=== PATIENT | male | born 1950 | race Caucasian/White ===

== ENCOUNTER 2017-08-08 17:26 | Inpatient (IN) ==
[2017-08-08] MEDS ORDERED: IOPAMIDOL 100 ML BOTTLE IV ONE (17:27)
--- NOTE | 2017-08-08 18:05 | Emergency Department Note ---
Abdominal Pain HPI - General Chief Complaint: Abdominal Pain Stated Complaint: abdominal pain, nausea Time Seen by Provider: 08/08/17 17:49 Source: patient, family, EMS Mode of arrival: EMS Limitations: no limitations - History of Present Illness HPI Narrative: this is a 66-year-old male presents into the emergency room todayby EMS after an acute onset of abdominal pain , nausea, vomiting, and light headedness that began 44 hours prior to presentation. The patient reports that today ate a hot sandwich earlier in the day and upon returning home he felt some back pain and this then developed into some nausea and abdominal pain along with some lightheadedness and dizziness. He vomited multiple times at home and was lightheaded prompting them to call EMS. he was given some antinausea medicine with EMS and currently he is feeling less nauseous but he does have diffuse abdominal pain. He locates the pain in his abdomen diffusely but also notes some back pain. History of kidney stones. He has not noticed any bloody urine. He has regular bowel movements daily and reports his last bowel movement was about an hour and a half ago but this did not seem to improve his abdominal pain or nausea. He also reports that he suffers from migraines and uses a lot of Excedrin and he does have a known duodenal ulcer. says that the abdominal pain does seem to wax and wane but that he does have a constant abdominal pain that is moderate in severity.He denies any chest pain or shortness of breath, radiation of pain, dysuria, numbness/tingling, headache, or any other acute symptoms. - Related Data Allergies Allergy/AdvReac Type Severity Reaction Status Date / Time ampicillin Allergy Mild Rash Verified 08/08/17 17:35 Review of Systems All systems ED: reviewed and negative except as stated. Abdominal Pain PMH - Past Medical History Attestation: Yes: The following information was validated with the patient. - Social History Smoking status: Never smoker Physical Exam Limitations: no limitations General appearance: alert, anxious, other Head: atraumatic, normocephalic Eye: Present: normal appearance ENT: normal exam Neck: Present: normal inspection Chest: Present: normal inspection Respiratory: Present: normal lung sounds bilaterally Cardiovascular: Present: regular rate, normal rhythm, normal heart sounds Abdominal: Present: soft, distention, guarding, rigidity, normal bowel sounds. Absent: tenderness (no focal tenderness ), rebound, trauma, Shepard's sign, Rovsing's sign, tenderness at McBurney's Point, mass, hernia Back: Present: normal inspection. Absent: tenderness, CVA tenderness (R), CVA tenderness (L), muscle spasm, vertebral tenderness Neurological: Present: alert, oriented X3 Skin: Present: warm, dry, intact Course Vital Signs Temperature 97.3 F 08/08/17 17:28 Pulse Rate 95 H 08/08/17 17:28 Respiratory Rate 17 08/08/17 17:28 Blood Pressure 129/66 08/08/17 17:28 Pulse Oximetry (%) 93 08/08/17 17:28 Temperature 97.3 F 08/08/17 17:28 Pulse Rate 89 08/08/17 20:46 Respiratory Rate 19 08/08/17 18:16 Blood Pressure 127/80 08/08/17 20:46 Pulse Oximetry (%) 93 08/08/17 20:46 Abdominal Pain - [facility] Narrative Medical decision making narrative: aafter history and physical is unclear the source of his abdominal pain as he has diffuse pain throughout his abdomen. I ordered a CBC, CMP, lipase, EKG, upright abdomen x-ray and urine dipstick. His EKG shows normal sinus rhythm with eeither rate and rhythm and normal axis. No ST elevation or any T-wave changes. the results of his CBC showed an elevated white count at 18. This is concerning for intra-abdominal pathology and I ordered a CT of his abdomen with contrast. He had an elevated creatinine so we consult the radiologist recommended a liter of fluids which we gave him prior to the CT. His CT scan resulted with a small bowel obstruction and the possibility of a intra- abdominal mass. The patient was also treated for his pain while in the emergency room with Dilaudid. I ordered an NG tube with intermittent suction and called Dr. Johnson with general surgery for admission. I will find the patient a bed and Dr. Johnson will be admitting and taking over his care. - Lab Data Result diagrams: 08/08/17 17:54 08/08/17 17:54 Lab Results 08/08/17 08/08/17 Range/Units 17:54 17:54 WBC 18.3 H (4.5-11.0) K/mcL RBC 5.86 (4.50-5.90) M/mcL Hgb 18.6 H (13.5-16.5) g/dL Hct 55.5 H (41.0-55.0) % MCV 94.7 (80.0-100.0) fL MCH 31.7 (26.0-34.0) pg MCHC 33.5 (31.0-36.0) g/dL RDW 13.2 (11.5-14.5) % Plt Count 190 (140-440) K/mcL MPV 8.4 (7.4-10.4) fL Gran % 83.4 H (38.0-78.0) % Lymph % (Auto) 7.5 L (15.5-49.0) % Crane % (Auto) 5.7 (1.0-12.0) % Eos % (Auto) 3.3 (0.0-7.0) % Baso % (Auto) 0.1 (0.0-2.0) % Gran # 15.3 H (1.8-8.0) K/mcL Lymph # (Auto) 1.4 L (1.5-4.8) K/mcL Crane # (Auto) 1.0 H (0.1-0.9) K/mcL Eos # (Auto) 0.6 (0.0-0.7) K/mcL Baso # (Auto) 0 (0.0-0.3) K/mcL Sodium 141 (133-145) mmol/L Potassium 4.2 (3.3-5.1) mmol/L Chloride 102 (96-108) mmol/L Carbon Dioxide 27 (22-30) mmol/L Anion Gap 12.0 (8-16) BUN 24 H (8-23) mg/dl Creatinine 1.5 H (0.7-1.2) mg/dl GFR Calculation 47 Glucose 110 H (70-105) mg/dL Calcium 9.6 (8.6-10.4) mg/dl Total Bilirubin 0.4 (0.0-1.0) mg/dL AST 29 (0-37) U/l ALT 29 (0-40) U/l Alkaline Phosphatase 89 (39-117) U/L Total Protein 7.7 (5.9-8.4) gm/dL Albumin 4.9 (3.2-5.2) gm/dL Globulin 2.8 (2.2-3.7) gm/dL Albumin/Globulin Ratio 1.8 (1.0-2.3) Lipase 35 (7-60) U/L Disposition Pt seen by [employer] TE[employer]/PA only: No Disposition: Xfer As Inpt ([facility]) Condition: Fair
[2017-08-08] MEDS ORDERED: ONDANSETRON 4 MG/2 ML VIAL IV ONE (18:13)
[2017-08-08] MEDS ORDERED: KETOROLAC 30 MG/ML VIAL IV ONE (18:21)
[2017-08-08] MEDS ORDERED: LACTATED RINGERS 1,000 ML IV ONE (18:22)
[2017-08-08 18:30] LABS: Basophils # (Auto) 0 K/mcL (0.0-0.3); Basophils % (Auto) 0.1 % (0.0-2.0); Eosinophils # (Auto) 0.6 K/mcL (0.0-0.7); Eosinophils % (Auto) 3.3 % (0.0-7.0); Granulocytes % (Auto) 83.4 % (38.0-78.0); Lymphocytes # (Auto) 1.4 K/mcL (1.5-4.8); Lymphocytes % (Auto) 7.5 % (15.5-49.0); Mean Cell Volume 94.7 fL (80.0-100.0); Mean Corpuscular HGB Conc 33.5 g/dL (31.0-36.0); Mean Corpuscular Hemoglobin 31.7 pg (26.0-34.0); Monocytes % (Auto) 5.7 % (1.0-12.0); Platelet Count 190 K/mcL (140-440); RBC 5.86 M/mcL (4.50-5.90); Red Cell Distribution Width 13.2 % (11.5-14.5)
[2017-08-08 18:49] LABS: ALT/SGPT 29 U/l (0-40); Albumin 4.9 gm/dL (3.2-5.2); Albumin/Globulin Ratio 1.8 (1.0-2.3); Alkaline Phosphatase 89 U/L (39-117); Blood Urea Nitrogen 24 mg/dl (8-23); Lipase 35 U/L (7-60)
[2017-08-08] MEDS ORDERED: HYDROmorphone 2 MG/ML VIAL IV PRN (19:49)
[2017-08-08] MEDS ORDERED: HYDROmorphone 2 MG/ML VIAL ONE ×2 (19:49→21:21)
[2017-08-08] MEDS ORDERED: ONDANSETRON 4 MG/2 ML VIAL IV PRN (21:03)
[2017-08-08] MEDS ORDERED: NALOXONE HCL 0.4 MG/ML VIAL IV PRN (21:03)
[2017-08-08] MEDS ORDERED: 0.9 % SODIUM CHLORIDE 1,000 ML IV SCH (21:15)
[2017-08-08] MEDS ORDERED: ACETAMINOPHEN 1,000 MG/100 ML BOTTLE IV PRN (22:03)
[2017-08-08] MEDS ORDERED: PROMETHAZINE 25 MG/ML VIAL IV PRN (22:03)
[2017-08-08] MEDS: 0.9 % SODIUM CHLORIDE 10 ML SYRINGE IV SCH (22:12)
[2017-08-08] MEDS: 0.9 % SODIUM CHLORIDE 1,000 ML IV SCH (22:12)
[2017-08-08] MEDS ORDERED: LEVOFLOXACIN 750 MG/150 ML BAG IV ONE (22:13)
[2017-08-08] MEDS: LEVOFLOXACIN 750 MG/150 ML BAG IV SCH (22:15)
--- NOTE | 2017-08-08 22:42 | General Surg History&Physical ---
History of Present Illness Patient information: Note initiated : 08/08/17 at 10:40 pm Service Date, if different from initiated Date: [] Patient: Woody Alfred 66 y/o M admitted on 08/08/17 for abdominal pain, nausea. Chief Complaint: [] HPI: Mr. Alfred is a 66 year old M who is admitted for possible bowel obstruction. The patient states that he had onset of back pain about 2 PM today while traveling. This was followed by nausea and vomiting about 3 PM and he had 6 episodes of vomiting. He finally came to the emergency room where it was noted that his abdomen was distended and he had diffuse tenderness. CT of the abdomen shows dilated small bowel including stomach. There is a suggestion of a swirling pattern in the mid small bowel. There is gas distally in the colon without obstructive pattern. He has not had similar pain. He has no history of abdominal surgery. He has not had recent weight loss. His last bowel movement was about 3 PM today and it was normal. Review of Systems All systems PM: reviewed and no additional remarkable complaints except as stated - Musculoskeletal arthralgias, back pain, joint swelling - Neurological headache(s) (Migraine headaches) Past History Past medical history: Hypertension Migraine headaches Past surgical history: Right knee meniscectomy Right hand surgery Past family history: Father alive age 94 no illness Mother age 88 due to congestive heart failure Family history of prostate cancer Past social history: Retired Never smoker Occasional alcohol user Never a drug user Medications and Allergies Allergies Allergy/AdvReac Type Severity Reaction Status Date / Time ampicillin Allergy Mild Rash Verified 08/08/17 17:35 Exam Temp Pulse Resp BP Pulse Ox 97.3 F 95 H 19 127/80 95 08/08/17 17:28 08/08/17 20:56 08/08/17 18:16 08/08/17 20:46 08/08/17 20:56 - General physical appearance well developed, well nourished, no distress - Eyes PERRL, normal ocular movement - ENT normal pinna, normal nares, normal mucosa, no congestion, decreased hearing ( Hearing is significantly decreased) - Head Head exam IM: Present: atraumatic, normocephalic - Neck no masses, no bruits, trachea midline, no lymphadectomy, no venous distension - Cardiovascular Cardiovascular exam IM: Present: normal rate and rhythm Peripheral pulses: 3+/4+: carotid (L), carotid (R), dorsalis pedis (L), dorsalis pedis (R), femoral (L), femoral (R), posterior tibialis (L), posterior tibialis (R) - Respiratory normal expansion, normal respiratory effort, clear to percussion, clear to auscultation - Abdomen Abdomen: Present: soft, non tender (No tenderness to palpation; active bowel sounds; minimal distention), bowel sounds Hernia: Present: none - Genitourinary Present: normal penis with no external lesions - Integumentary Present: no rash, no growths, no abnormal pigmentation - Neurologic Present: normal coordination, normal sensation - Musculoskeletal Present: normal gait, normal posture - Psychiatric Present: oriented to time, oriented to person, oriented to place, speech is normal, memory intact Assessment and Plan (1) Small bowel obstruction Small bowel follow-through in the morning Rehydrate tonight Discussed possibility of laparotomy and bowel surgery if needed Status: Acute (2) Right renal mass Status: Acute (3) Essential hypertension Status: Acute (4) Dehydration, moderate Rehydrate and recheck labs in the morning Status: Acute
[2017-08-09] MEDS ORDERED: METOCLOPRAMIDE 10 MG/2 ML VIAL ONE ×2 (00:48→17:41)
[2017-08-09] MEDS: METOCLOPRAMIDE 10 MG/2 ML VIAL IV SCH ×5 (00:50→23:15)
[2017-08-09] MEDS: 0.9 % SODIUM CHLORIDE 1,000 ML IV SCH ×5 (04:40→20:12)
[2017-08-09] MEDS ORDERED: HYDROmorphone 2 MG/ML VIAL ONE ×2 (04:43→19:26)
[2017-08-09] MEDS: 0.9 % SODIUM CHLORIDE 10 ML SYRINGE IV SCH ×3 (05:24→20:39)
[2017-08-09 05:51] LABS: Mean Cell Volume 95.4 fL (80.0-100.0); Mean Corpuscular HGB Conc 33.1 g/dL (31.0-36.0); Mean Corpuscular Hemoglobin 31.5 pg (26.0-34.0); Platelet Count 181 K/mcL (140-440); RBC 5.41 M/mcL (4.50-5.90); Red Cell Distribution Width 13.4 % (11.5-14.5)
[2017-08-09 06:01] LABS: ALT/SGPT 24 U/l (0-40); Albumin 4.1 gm/dL (3.2-5.2); Albumin/Globulin Ratio 1.5 (1.0-2.3); Alkaline Phosphatase 76 U/L (39-117); Bilirubin,Direct < 0.2 mg/dL (0.0-0.3); Blood Urea Nitrogen 27 mg/dl (8-23); Gamma Glutamyl Transpeptidase 20 U/L (8-61); Uric Acid 4.4 mg/dL (2.5-8.0)
[2017-08-09 06:56] LABS: Lymphocytes % 7 % (15-49); Monocytes % (Manual) 3 % (1-12); Platelet Estimate NORMAL (NORMAL); RBC Morphology NORMAL (NORMAL); Segmented Neutrophils % 89 % (38-78)
--- NOTE | 2017-08-09 07:13 | XRay Report ---
CLINICAL INFORMATION: NG placement small bowel obstruction COMPARISON: None. FINDINGS: Heart size, mediastinum and pulmonary vessels are normal. Lungs are clear. Right diaphragm is chronically elevated. NG tube overlies the gastric body no effusion IMPRESSION: NG tube overlies the gastric body. No acute cardiopulmonary disease Interpreted and Authenticated by: Fawad Abbasi 08/09/17
--- NOTE | 2017-08-09 07:22 | XRay Report ---
CLINICAL INFORMATION: Abdominal pain and distention COMPARISON: None. FINDINGS: Only the superior one half of the abdomen is included in the film. The stomach is moderately dilated. Few loops of upper small bowel are mildly dilated. No free air or soft tissue mass. IMPRESSION: Suboptimal exam. Suspect small bowel obstruction Interpreted and Authenticated by: Fawad Abbasi 08/09/17
--- NOTE | 2017-08-09 07:23 | Emergency Department Note ---
ED Note Addendum Note Addendum: Saw this patient with John Ace PA-C. I agree with his documentation evaluation and management. In particular I also examined the patient reviewed his past medical history imaging and laboratory and helped coordinate his care. I wrote transition orders for Dr. Johnson to bring him in the hospital
[2017-08-09] MEDS ORDERED: PANTOPRAZOLE 40 MG VIAL IV SCH (07:30)
[2017-08-09] MEDS: HYDROmorphone 2 MG/ML VIAL IV PRN ×4 (07:53→23:27)
--- NOTE | 2017-08-09 08:26 | Cat Scan Report ---
CLINICAL INFORMATION: Abdominal pain and distention COMPARISON: None. TECHNIQUE: Following enteric contrast, 80 cc of Isovue-300 were injected and 60 seconds later, 0.625 mm helical slices were obtained from the mid heart through the iliac crest. Following reconstructions, sagittal, coronal and axial reformations were processed. Exam was reviewed at bone, lung and soft tissue windows Eight minutes later repeat 0.625 mm helical slices were obtained through the kidneys.The exam was performed using radiation dose optimization techniques including, but not limited to, automated exposure control, adjustment of the mA and/or kV according to patient size and use of iterative reconstruction technique. FINDINGS: Right diaphragm is mildly elevated and there is moderate compressive atelectasis in the overlying right lower lobe. No effusions. Minimal atelectasis in the posterior left lower lobe. The visualized heart is unremarkable. Images through the abdomen show a 14 mm simple cyst in the superior aspect of the right hepatic lobe and a 5 mm simple cyst in the mid right hepatic lobe. No significant focal hepatic lesions. The gallbladder and bile ducts are normal: CBD is 5 mm. The adrenal glands, spleen, pancreas and aorta including aortic branches are normal in size configuration and attenuation without focal lesion. There is a 20 mm minimally lobulated inhomogeneously enhancing nodule in the inferior pole the left kidney. It is suspicious for stage I renal cell carcinoma. There are two tiny nonobstructing stones in the calyces of both kidneys Images through the pelvis show urinary bladder prostate and seminal vesicles to be grossly normal.The stomach, duodenum and proximal jejunum are moderately dilated to the mid jejunal level. Beyond this transition, there is decompression of the distal small bowel and colon. Suspect adhesions or stricture. Sigmoid diverticuli seen, but no evidence of diverticulitis. The remaining leg colon and the appendix are unremarkable. Bone windows show grade 1 L4-5 spondylolisthesis with 6 mm of L4 anterior subluxation due to degenerative facet disease. This results in moderate central canal and bilateral IV foraminal narrowing. No focal osteolytic lesions IMPRESSION: Partial mid jejunal obstruction ostensibly related to fibrosis or adhesions. No free air or free fluid to suggest third spacing 20 mm inhomogeneously enhancing solid nodule in the inferior pole of the left kidney - suspicious for stage I renal cell carcinoma. No CT evidence for metastases or adenopathy. Consider: CT-guided percutaneous biopsy Moderate chronic elevation right diaphragm with compressive atelectasis in the overlying right lower lobe Grade 1 L4-5 spondylolisthesis and degenerative facet disease resulting in moderate central canal, bilateral lateral recess and IV foraminal narrowing possibly impinging the exiting L4 and descending L5 nerve roots - more prominent on the left sideleft side Interpreted and Authenticated by: Fawad Abbasi 08/09/17
--- NOTE | 2017-08-09 09:04 | XRay Report ---
CLINICAL INFORMATION: Follow small bowel obstruction COMPARISON: CT from one day prior 08/08/2017 FINDINGS: NG tip overlies the gastric antrum. The stomach, duodenum and proximal jejunum are mildly dilated, but decreased from previous day's study following NG decompression. There is modest amounts of residual stool and gas within the distal small bowel and colon. No free air or soft tissue mass. IMPRESSION: Improving partial mid jejunal obstruction pattern. NG tube in stable satisfactory position Interpreted and Authenticated by: Fawad Abbasi 08/09/17
[2017-08-09] MEDS: LEVOFLOXACIN 750 MG/150 ML BAG IV SCH (12:00)
--- NOTE | 2017-08-09 13:17 | General Surgery Progress Note ---
Subjective Patient reports: still having pain, no flatus, no bowel movement, nausea, afebrile Narrative: Note initiated : 08/09/17 at 1:14 pm Service Date, if different from initiated Date: [] Patient: Woody Alfred 66 y/o M admitted on 08/08/17 for abdominal pain, nausea. Chief Complaint: [Patient states that his abdominal pain has increased and he is having more severe cramping. He has had his small bowel follow-through and there is no transit of contrast through the small bowel at 4 hours. He has a rigid abdomen with hyperactive bowel sounds and more tenderness than last evening. He is counseled for exploratory laparotomy which will be done today.] Objective Temp Pulse Resp BP Pulse Ox 98.6 F 113 H 16 149/83 96 08/09/17 12:00 08/09/17 12:00 08/09/17 12:00 08/09/17 12:00 08/09/17 12:00 - Additional Data Intake & Output - Last 24 hours: Intake & Output 08/07/17 08/08/17 08/09/17 08/10/17 05:59 05:59 05:59 05:59 Intake Total 1999 / 1999 150 / 150 Output Total 1050 / 1050 Balance 950 / 950 150 / 150 Weight 200 lb - General physical appearance well developed, well nourished, moderate distress, moderate pain - Eyes PERRL, normal ocular movement - ENT normal pinna, normal nares, normal mucosa, no hearing loss, no congestion - Neck no masses, no bruits, trachea midline, no lymphadectomy, no venous distension - Respiratory normal expansion, normal respiratory effort, clear to percussion, clear to auscultation - Cardiovascular Cardiovascular exam: Present: normal rate and rhythm, +S1, +S2, tachycardia. Absent: JVD - Abdomen tender, bowel sounds (Distended abdomen with hyperactive bowel sounds; diffuse tenderness with guarding) - Integumentary no rash, no growths, no abnormal pigmentation - Neurologic normal coordination, normal sensation - Musculoskeletal normal gait, normal posture - Psychiatric oriented to time, oriented to person, oriented to place, speech is normal, memory intact - Labs 08/09/17 04:42 08/09/17 04:42 Diabetes panel 08/08/17 08/09/17 Range/Units 17:54 04:42 Sodium 141 138 (133-145) mmol/L Potassium 4.2 4.6 (3.3-5.1) mmol/L Chloride 102 103 (96-108) mmol/L Carbon Dioxide 27 22 (22-30) mmol/L BUN 24 H 27 H (8-23) mg/dl Creatinine 1.5 H 1.3 H (0.7-1.2) mg/dl Glucose 110 H 136 H (70-105) mg/dL Calcium 9.6 8.8 (8.6-10.4) mg/dl AST 29 28 (0-37) U/l ALT 29 24 (0-40) U/l Alkaline Phosphatase 89 76 (39-117) U/L Total Protein 7.7 6.9 (5.9-8.4) gm/dL Albumin 4.9 4.1 (3.2-5.2) gm/dL Triglycerides 136 (<150) mg/dl Calcium panel 08/08/17 08/09/17 Range/Units 17:54 04:42 Calcium 9.6 8.8 (8.6-10.4) mg/dl Phosphorus 2.6 L (2.7-4.5) mg/dL Albumin 4.9 4.1 (3.2-5.2) gm/dL Pituitary panel 08/08/17 08/09/17 Range/Units 17:54 04:42 Sodium 141 138 (133-145) mmol/L Potassium 4.2 4.6 (3.3-5.1) mmol/L Chloride 102 103 (96-108) mmol/L Carbon Dioxide 27 22 (22-30) mmol/L BUN 24 H 27 H (8-23) mg/dl Creatinine 1.5 H 1.3 H (0.7-1.2) mg/dl Glucose 110 H 136 H (70-105) mg/dL Calcium 9.6 8.8 (8.6-10.4) mg/dl Adrenal panel 08/08/17 08/09/17 Range/Units 17:54 04:42 Sodium 141 138 (133-145) mmol/L Potassium 4.2 4.6 (3.3-5.1) mmol/L Chloride 102 103 (96-108) mmol/L Carbon Dioxide 27 22 (22-30) mmol/L BUN 24 H 27 H (8-23) mg/dl Creatinine 1.5 H 1.3 H (0.7-1.2) mg/dl Glucose 110 H 136 H (70-105) mg/dL Calcium 9.6 8.8 (8.6-10.4) mg/dl Total Bilirubin 0.4 0.5 (0.0-1.0) mg/dL AST 29 28 (0-37) U/l ALT 29 24 (0-40) U/l Alkaline Phosphatase 89 76 (39-117) U/L Total Protein 7.7 6.9 (5.9-8.4) gm/dL Albumin 4.9 4.1 (3.2-5.2) gm/dL Assessment and Plan (1) Small bowel obstruction Status: Acute Assessment and plan: Clinically the patient has a complete obstruction and he is counseled for exploratory laparotomy. Current Visit: Yes (2) Essential hypertension Status: Acute Assessment and plan: Blood pressures mildly elevated but not significant enough to start treatment. We will give IV medication if needed Current Visit: Yes (3) Dehydration, moderate Status: Acute Assessment and plan: Creatinine is slightly improved but BUN still 27 Current Visit: Yes (4) Left renal mass Status: Acute Current Visit: Yes - Time Spent With Patient Total time spent is greater than 50% in coordination of care (as documented) at patient's floor/unit and/or counseling patient:
[2017-08-09 14:22] LABS: Appearance,Urine CLEAR; Bacteria,Urine 0 /hpf (0); Bilirubin,Urine NEG (NEG); Color,Urine YELLOW; Glucose,Urine (UA) NEGATIVE (NEG); Leukocyte Esterase,Urine NEG /uL (NEG); Mucus,Urine FEW /hpf (0); Protein,Urine 30 mg/dL (NEG); Specific Gravity,Urine 1.035 (1.000-1.035); Urine Blood >=1.0 mg/dL (<0.03); Urine RBC 108 /hpf (0-1); Urine Squamous Epithelial Cell 0 /hpf (0-4); Urine WBC 4 /hpf (0-4); Urobilinogen,Urine NEG (NEG)
[2017-08-09] MEDS ORDERED: ONDANSETRON 4 MG/2 ML VIAL IV ONE (14:25)
[2017-08-09] MEDS ORDERED: BUPIVACAINE W/EPI 0.5% 50 ML VIAL IJ ONE (14:25)
[2017-08-09] MEDS ORDERED: PROPOFOL 200 MG/20 ML VIAL IV ONE (14:25)
[2017-08-09] MEDS ORDERED: GLYCOPYRROLATE 0.2 MG/ML VIAL IV ONE (14:25)
[2017-08-09] MEDS ORDERED: NEOSTIGMINE 1 MG/ML VIAL IV ONE (14:25)
[2017-08-09] MEDS ORDERED: LIDOCAINE HCL/PF 100 MG/5 ML SYRINGE IV ONE (14:25)
[2017-08-09] MEDS ORDERED: MIDAZOLAM 2 MG/2 ML VIAL IV ONE (14:25)
[2017-08-09] MEDS ORDERED: KETAMINE 100 MG/ML ML IV ONE (14:25)
[2017-08-09] MEDS ORDERED: ROCURONIUM 10 MG/ML ML IV ONE (14:25)
[2017-08-09] MEDS ORDERED: PHENYLEPHRINE 10 MG/ML VIAL IV ONE (14:25)
--- NOTE | 2017-08-09 15:52 | Brief Operative Note ---
Date of procedure: 08/09/17 Pre-op diagnosis: small bowel obstruction Post-op diagnosis: other (adynamic ileus without obstruction) Procedure: exploratory laparotomy Grafts/Implants: No Anesthesia: GETA Findings: dilated proximal jejunum with mild dilation of ileum no evidence of stricture or stenosis; no evidence of any adhesions in peritoneal cavity .small bowel and colon are fully patent Complications: none Surgeon: Jayce Johnson Estimated blood loss (cc): 25 Specimens Removed/Pathology: none sent Condition: stable Disposition: PACU
[2017-08-09] MEDS ORDERED: MEPERIDINE 25 MG/ML SYRINGE IV PRN (15:53)
[2017-08-09] MEDS ORDERED: ONDANSETRON 4 MG/2 ML VIAL IV PRN ×2 (15:53→16:05)
[2017-08-09] MEDS ORDERED: IPRATROPIUM/ALBUTEROL 3 ML AMPUL.NEB NEB PRN (15:53)
[2017-08-09] MEDS ORDERED: LACTATED RINGERS 1,000 ML IV SCH ×2 (16:00→16:05)
[2017-08-09] MEDS ORDERED: PROMETHAZINE 25 MG/ML VIAL IV PRN (16:05)
[2017-08-09] MEDS: fentaNYL 100 MCG/2 ML VIAL IV PRN ×2 (16:22→16:27)
[2017-08-09] MEDS ORDERED: fentaNYL 100 MCG/2 ML VIAL IV ONE (16:22)
--- NOTE | 2017-08-09 19:23 | XRay Report ---
CLINICAL INFORMATION: Follow small bowel obstruction TECHNIQUE: Single contrast barium was in infused via NG tube serial plain films were obtained over two hours FINDINGS: The stomach, duodenum and multiple loops of proximal jejunum are moderately dilated to the mid jejunum. At that point, there is abrupt transition into decompressed distal jejunum and colon. Presumably, this is related to adhesion or stricture IMPRESSION: Moderate grade partial small bowel obstruction mid jejunum due to adhesion or stricture Interpreted and Authenticated by: Fawad Abbasi 08/09/17
[2017-08-09] MEDS: PANTOPRAZOLE 40 MG VIAL IV SCH (20:39)
[2017-08-09] MEDS: ACETAMINOPHEN 1,000 MG/100 ML BOTTLE IV PRN (21:06)
[2017-08-10] MEDS: 0.9 % SODIUM CHLORIDE 1,000 ML IV SCH ×4 (01:26→19:46)
[2017-08-10] MEDS: HYDROmorphone 2 MG/ML VIAL IV PRN ×7 (02:29→21:56)
[2017-08-10 06:18] LABS: Basophils # (Auto) 0 K/mcL (0.0-0.3); Basophils % (Auto) 0 % (0.0-2.0); Eosinophils # (Auto) 0 K/mcL (0.0-0.7); Eosinophils % (Auto) 0.1 % (0.0-7.0); Granulocytes % (Auto) 85.3 % (38.0-78.0); Lymphocytes # (Auto) 1.5 K/mcL (1.5-4.8); Lymphocytes % (Auto) 9.1 % (15.5-49.0); Mean Cell Volume 94.7 fL (80.0-100.0); Mean Corpuscular HGB Conc 33.6 g/dL (31.0-36.0); Mean Corpuscular Hemoglobin 31.8 pg (26.0-34.0); Monocytes # (Auto) 0.9 K/mcL (0.1-0.9); Monocytes % (Auto) 5.5 % (1.0-12.0); Platelet Count 170 K/mcL (140-440); RBC 5.11 M/mcL (4.50-5.90); Red Cell Distribution Width 13.5 % (11.5-14.5)
[2017-08-10] MEDS: 0.9 % SODIUM CHLORIDE 10 ML SYRINGE IV SCH ×3 (06:26→21:37)
[2017-08-10] MEDS: METOCLOPRAMIDE 10 MG/2 ML VIAL IV SCH ×3 (06:26→18:54)
[2017-08-10 06:37] LABS: ALT/SGPT 18 U/l (0-40); Albumin 3.5 gm/dL (3.2-5.2); Albumin/Globulin Ratio 1.3 (1.0-2.3); Alkaline Phosphatase 66 U/L (39-117); Bilirubin,Direct < 0.2 mg/dL (0.0-0.3); Blood Urea Nitrogen 25 mg/dl (8-23); Gamma Glutamyl Transpeptidase 17 U/L (8-61); Uric Acid 3.2 mg/dL (2.5-8.0)
[2017-08-10] MEDS: PANTOPRAZOLE 40 MG VIAL IV SCH ×2 (06:42→16:47)
[2017-08-10] MEDS: LEVOFLOXACIN 750 MG/150 ML BAG IV SCH (09:43)
[2017-08-10] MEDS: ACETAMINOPHEN 1,000 MG/100 ML BOTTLE IV PRN ×2 (11:25→19:43)
--- NOTE | 2017-08-10 15:19 | General Surgery Progress Note ---
Subjective Patient reports: feels better, still having pain, flatus, bowel movement, fever Narrative: Note initiated : 08/10/17 at 3:17 pm Service Date, if different from initiated Date: [] Patient: Woody Alfred 66 y/o M admitted on 08/08/17 for Abdominal Pain, Nausea /Small Bowel Obstruction. Chief Complaint: [Patient feels better. He has had low-grade fever up to 100.2. He has an ineffective cough because of incisional pain. He has had flatus and bowel movements 2. He has nausea related to his nasogastric tube.] Objective Temp Pulse Resp BP Pulse Ox 99.7 F H 120 H 20 167/95 94 08/10/17 12:00 08/10/17 12:00 08/10/17 12:00 08/10/17 12:00 08/10/17 12:00 - Additional Data Intake & Output - Last 24 hours: Intake & Output 08/08/17 08/09/17 08/10/17 08/11/17 05:59 05:59 05:59 05:59 Intake Total 1999 / 1999 5355 / 5355 1250 / 1250 Output Total 1050 / 1050 1880 / 1880 Balance 950 / 950 3475 / 3475 1250 / 1250 Weight 200 lb 207 lb 207 lb - General physical appearance well developed, well nourished, moderate distress, severe distress, moderate pain - Eyes PERRL, normal ocular movement - ENT normal pinna, normal nares, normal mucosa, no congestion, decreased hearing - Neck no masses, no bruits, trachea midline, no lymphadectomy, no venous distension - Respiratory normal expansion, normal respiratory effort, clear to percussion, clear to auscultation - Cardiovascular Cardiovascular exam: Present: normal rate and rhythm, RRR, +S1, +S2. Absent: JVD - Abdomen tender (Incisional tenderness with hypoactive bowel sounds; incision looks good) , bowel sounds (present), surgical scars (none), masses (none) - Integumentary no rash, no growths, no abnormal pigmentation - Neurologic normal coordination, normal sensation - Musculoskeletal normal gait, normal posture - Psychiatric oriented to time, oriented to person, oriented to place, speech is normal, memory intact - Labs 08/10/17 04:56 08/10/17 04:56 Diabetes panel 08/10/17 Range/Units 04:56 Sodium 141 (133-145) mmol/L Potassium 4.0 (3.3-5.1) mmol/L Chloride 109 H (96-108) mmol/L Carbon Dioxide 21 L (22-30) mmol/L BUN 25 H (8-23) mg/dl Creatinine 1.3 H (0.7-1.2) mg/dl Glucose 121 H (70-105) mg/dL Calcium 7.9 L (8.6-10.4) mg/dl AST 20 (0-37) U/l ALT 18 (0-40) U/l Alkaline Phosphatase 66 (39-117) U/L Total Protein 6.1 (5.9-8.4) gm/dL Albumin 3.5 (3.2-5.2) gm/dL Triglycerides 63 (<150) mg/dl Calcium panel 08/10/17 Range/Units 04:56 Calcium 7.9 L (8.6-10.4) mg/dl Phosphorus 2.4 L (2.7-4.5) mg/dL Albumin 3.5 (3.2-5.2) gm/dL Pituitary panel 08/10/17 Range/Units 04:56 Sodium 141 (133-145) mmol/L Potassium 4.0 (3.3-5.1) mmol/L Chloride 109 H (96-108) mmol/L Carbon Dioxide 21 L (22-30) mmol/L BUN 25 H (8-23) mg/dl Creatinine 1.3 H (0.7-1.2) mg/dl Glucose 121 H (70-105) mg/dL Calcium 7.9 L (8.6-10.4) mg/dl Adrenal panel 08/10/17 Range/Units 04:56 Sodium 141 (133-145) mmol/L Potassium 4.0 (3.3-5.1) mmol/L Chloride 109 H (96-108) mmol/L Carbon Dioxide 21 L (22-30) mmol/L BUN 25 H (8-23) mg/dl Creatinine 1.3 H (0.7-1.2) mg/dl Glucose 121 H (70-105) mg/dL Calcium 7.9 L (8.6-10.4) mg/dl Total Bilirubin 0.7 (0.0-1.0) mg/dL AST 20 (0-37) U/l ALT 18 (0-40) U/l Alkaline Phosphatase 66 (39-117) U/L Total Protein 6.1 (5.9-8.4) gm/dL Albumin 3.5 (3.2-5.2) gm/dL Assessment and Plan (1) Small bowel obstruction Status: Acute Assessment and plan: Clinically much improved Current Visit: Yes (2) Essential hypertension Status: Acute Assessment and plan: Blood pressures mildly elevated but not significant enough to start treatment. We will give IV medication if needed Current Visit: Yes (3) Dehydration, moderate Status: Acute Assessment and plan: Creatinine is slightly improved but BUN still 25 Current Visit: Yes (4) Left renal mass Status: Acute Current Visit: Yes - Time Spent With Patient Total time spent is greater than 50% in coordination of care (as documented) at patient's floor/unit and/or counseling patient:
[2017-08-10] MEDS: metroNIDAZOLE 500 MG/100 ML BAG IV SCH ×2 (16:47→20:59)
[2017-08-11] MEDS: metroNIDAZOLE 500 MG/100 ML BAG IV SCH ×5 (00:32→23:34)
[2017-08-11] MEDS: METOCLOPRAMIDE 10 MG/2 ML VIAL IV SCH ×5 (00:32→23:34)
[2017-08-11] MEDS: HYDROmorphone 2 MG/ML VIAL IV PRN ×8 (00:38→21:20)
[2017-08-11] MEDS: 0.9 % SODIUM CHLORIDE 1,000 ML IV SCH ×4 (04:39→17:10)
[2017-08-11] MEDS: ACETAMINOPHEN 1,000 MG/100 ML BOTTLE IV PRN ×2 (05:15→15:49)
[2017-08-11] MEDS: 0.9 % SODIUM CHLORIDE 10 ML SYRINGE IV SCH ×3 (05:24→22:15)
[2017-08-11 05:47] LABS: Basophils # (Auto) 0.1 K/mcL (0.0-0.3); Basophils % (Auto) 0.5 % (0.0-2.0); Eosinophils # (Auto) 0.2 K/mcL (0.0-0.7); Eosinophils % (Auto) 1.4 % (0.0-7.0); Granulocytes % (Auto) 83.9 % (38.0-78.0); Lymphocytes # (Auto) 1.2 K/mcL (1.5-4.8); Lymphocytes % (Auto) 8.5 % (15.5-49.0); Mean Cell Volume 95.8 fL (80.0-100.0); Mean Corpuscular HGB Conc 33.4 g/dL (31.0-36.0); Monocytes # (Auto) 0.8 K/mcL (0.1-0.9); Monocytes % (Auto) 5.7 % (1.0-12.0); Platelet Count 157 K/mcL (140-440); RBC 4.76 M/mcL (4.50-5.90); Red Cell Distribution Width 13.4 % (11.5-14.5)
[2017-08-11 06:02] LABS: ALT/SGPT 15 U/l (0-40); Albumin 3.4 gm/dL (3.2-5.2); Albumin/Globulin Ratio 1.3 (1.0-2.3); Alkaline Phosphatase 61 U/L (39-117); Bilirubin,Direct < 0.2 mg/dL (0.0-0.3); Blood Urea Nitrogen 22 mg/dl (8-23); Gamma Glutamyl Transpeptidase 18 U/L (8-61); Uric Acid 2.8 mg/dL (2.5-8.0)
[2017-08-11] MEDS: PANTOPRAZOLE 40 MG VIAL IV SCH ×2 (07:45→17:11)
--- NOTE | 2017-08-11 08:57 | XRay Report ---
CLINICAL INFORMATION: Follow small bowel obstruction COMPARISON: Small bowel follow-through study 08/09/2017 FINDINGS: NG tip overlies the gastric antrum. The stomach and small bowel are now completely decompressed. The enteric contrast, given on prior study, is entirely within the colon IMPRESSION: Resolution - partial mid jejunal obstruction Interpreted and Authenticated by: Fawad Abbasi 08/11/17
[2017-08-11] MEDS: LEVOFLOXACIN 750 MG/150 ML BAG IV SCH (10:01)
--- NOTE | 2017-08-11 10:06 | XRay Report ---
CLINICAL INFORMATION: Shortness of breath COMPARISON: 08/08/2017 chest x-ray and abdominal CT from 08/08/2017 FINDINGS: Right diaphragm is mildly elevated - likely chronic. As result, there is compressive atelectasis in the overlying right middle and lower lobes. The lungs are clear. Heart size, mediastinum and pulmonary vessels are normal. NG tube tip overlies the gastric antrum IMPRESSION: Moderate elevation right diaphragm with minor atelectasis in the overlying right middle and lower lobes. No acute disease Interpreted and Authenticated by: Fawad Abbasi 08/11/17
[2017-08-11 10:50] LABS: proBNP 144.2 pg/ml (0-125)
--- NOTE | 2017-08-11 15:47 | Operative Note ---
DATE OF OPERATION: 08/09/2017 PREOPERATIVE DIAGNOSIS: Small-bowel obstruction. POSTOPERATIVE DIAGNOSIS: Severe adynamic ileus without obstruction. PROCEDURE: Exploratory laparotomy. SURGEON: Jayce Johnson M.D. DESCRIPTION: The patient had been admitted the night before and placed on nasogastric suction. The preliminary CT showed a midgut obstruction. The following morning a small bowel follow-through with Gastrografin was carried out. This too suggested a midgut small-bowel obstruction. The patient was having more pain and became more restless. His abdomen became rigid, so it was elected to explore him. He was taken to the operating room where general anesthesia was induced. Timeout procedure was carried out as per protocol. Midline incision was made above and below the umbilicus. Upon entering the abdomen, it was noted that he had dilated proximal jejunum, but he also had mild dilation of the ileum. There was no clinical evidence of stricture or stenosis, and there was no evidence of any adhesions in the peritoneal cavity. The small bowel and colon were widely patent and liquid could be pushed throughout the bowel. Some of the liquid was pushed from the small bowel into the right colon. Pulsations in the aorta and all the major vessels were very brisk. Being satisfied that the patient had primarily a major adynamic ileus, his abdomen was fully explored and then closed using running #1 Prolene on the fascia, 2-0 Monocryl in the subcutaneous tissue, and felix on the skin. He was awakened uneventfully, transferred to a bed, and taken to the postanesthetic care unit in stable, satisfactory condition. LCS:sebastian Job ID: [id number] Doc ID: [id number] Jayce Johnson M.D.
--- NOTE | 2017-08-11 16:18 | General Surgery Progress Note ---
Subjective Patient reports: feels better, pain is less, flatus, bowel movement Narrative: Note initiated : 08/11/17 at 4:12 pm Service Date, if different from initiated Date: [] Patient: Woody Alfred 66 y/o M admitted on 08/08/17 for Abdominal Pain, Nausea /Small Bowel Obstruction. Chief Complaint: [Patient is clinically improved. He had small bowel movements with flatus today. He complained of shortness of breath and had hypo- ventilation but this improved with discontinuing his nasogastric tube. abdominal x-rays revealed decompression of the small bowel with all of the contrast in the colon. His BUN and creatinine have returned to normal.] Objective Temp Pulse Resp BP Pulse Ox 99.1 F H 114 H 18 164/95 95 08/11/17 11:27 08/11/17 11:27 08/11/17 11:27 08/11/17 11:27 08/11/17 11:27 - Additional Data Intake & Output - Last 24 hours: Intake & Output 08/09/17 08/10/17 08/11/17 08/12/17 05:59 05:59 05:59 05:59 Intake Total 1999 / 1999 5355 / 5355 3650 / 3650 450 / 450 Output Total 1050 / 1050 1880 / 1880 1475 / 1475 675 / 675 Balance 950 / 950 3475 / 3475 2175 / 2175 -225 / -225 Weight 200 lb 207 lb 206 lb 8 oz - General physical appearance well developed, well nourished, no distress - Eyes PERRL, normal ocular movement - ENT normal pinna, normal nares, normal mucosa, no hearing loss, no congestion - Neck no masses, no bruits, trachea midline, no lymphadectomy, no venous distension - Respiratory normal expansion, normal respiratory effort, clear to percussion, clear to auscultation - Cardiovascular Cardiovascular exam: Present: normal rate and rhythm, RRR, +S1, +S2. Absent: JVD - Abdomen tender (Mild incisional tenderness with good active bowel sounds; mild ecchymosis of midline incision), bowel sounds (present), surgical scars (none), masses (none) - Integumentary no rash, no growths, no abnormal pigmentation - Neurologic normal coordination - Musculoskeletal normal gait, normal posture - Psychiatric oriented to time, oriented to person, oriented to place, speech is normal, memory intact - Labs 08/11/17 04:50 08/11/17 04:50 Diabetes panel 08/11/17 Range/Units 04:50 Sodium 141 (133-145) mmol/L Potassium 3.9 (3.3-5.1) mmol/L Chloride 109 H (96-108) mmol/L Carbon Dioxide 20 L (22-30) mmol/L BUN 22 (8-23) mg/dl Creatinine 1.1 (0.7-1.2) mg/dl Glucose 109 H (70-105) mg/dL Calcium 8.0 L (8.6-10.4) mg/dl AST 19 (0-37) U/l ALT 15 (0-40) U/l Alkaline Phosphatase 61 (39-117) U/L Total Protein 6.1 (5.9-8.4) gm/dL Albumin 3.4 (3.2-5.2) gm/dL Triglycerides 87 (<150) mg/dl Calcium panel 08/11/17 Range/Units 04:50 Calcium 8.0 L (8.6-10.4) mg/dl Phosphorus 1.7 L (2.7-4.5) mg/dL Albumin 3.4 (3.2-5.2) gm/dL Pituitary panel 08/11/17 Range/Units 04:50 Sodium 141 (133-145) mmol/L Potassium 3.9 (3.3-5.1) mmol/L Chloride 109 H (96-108) mmol/L Carbon Dioxide 20 L (22-30) mmol/L BUN 22 (8-23) mg/dl Creatinine 1.1 (0.7-1.2) mg/dl Glucose 109 H (70-105) mg/dL Calcium 8.0 L (8.6-10.4) mg/dl Adrenal panel 08/11/17 Range/Units 04:50 Sodium 141 (133-145) mmol/L Potassium 3.9 (3.3-5.1) mmol/L Chloride 109 H (96-108) mmol/L Carbon Dioxide 20 L (22-30) mmol/L BUN 22 (8-23) mg/dl Creatinine 1.1 (0.7-1.2) mg/dl Glucose 109 H (70-105) mg/dL Calcium 8.0 L (8.6-10.4) mg/dl Total Bilirubin 0.5 (0.0-1.0) mg/dL AST 19 (0-37) U/l ALT 15 (0-40) U/l Alkaline Phosphatase 61 (39-117) U/L Total Protein 6.1 (5.9-8.4) gm/dL Albumin 3.4 (3.2-5.2) gm/dL Assessment and Plan (1) Small bowel obstruction Status: Acute Assessment and plan: Clinically much improved Discontinue Raman cath Discontinue nasogastric tube Current Visit: Yes (2) Essential hypertension Status: Acute Assessment and plan: Blood pressures mildly elevated but not significant enough to start treatment. We will give IV medication if needed Current Visit: Yes (3) Dehydration, moderate Status: Acute Assessment and plan: BUN and creatinine are stable Current Visit: Yes (4) Left renal mass Status: Acute Current Visit: Yes - Time Spent With Patient Total time spent is greater than 50% in coordination of care (as documented) at patient's floor/unit and/or counseling patient:
[2017-08-11] MEDS: METOPROLOL TARTRATE 5 MG/5 ML VIAL IV PRN (19:40)
[2017-08-12] MEDS: METOPROLOL TARTRATE 5 MG/5 ML VIAL IV PRN ×4 (01:09→23:38)
[2017-08-12] MEDS: HYDROmorphone 2 MG/ML VIAL IV PRN ×7 (01:46→19:54)
[2017-08-12] MEDS: metroNIDAZOLE 500 MG/100 ML BAG IV SCH ×4 (05:31→23:22)
[2017-08-12] MEDS: 0.9 % SODIUM CHLORIDE 1,000 ML IV SCH ×5 (05:31→22:15)
[2017-08-12] MEDS: 0.9 % SODIUM CHLORIDE 10 ML SYRINGE IV SCH ×3 (05:32→22:15)
[2017-08-12] MEDS: METOCLOPRAMIDE 10 MG/2 ML VIAL IV SCH ×4 (05:32→23:27)
[2017-08-12 06:03] LABS: Basophils # (Auto) 0 K/mcL (0.0-0.3); Basophils % (Auto) 0.2 % (0.0-2.0); Eosinophils # (Auto) 0.1 K/mcL (0.0-0.7); Eosinophils % (Auto) 0.9 % (0.0-7.0); Lymphocytes # (Auto) 1.2 K/mcL (1.5-4.8); Lymphocytes % (Auto) 10.2 % (15.5-49.0); Mean Cell Volume 95.5 fL (80.0-100.0); Mean Corpuscular HGB Conc 33.4 g/dL (31.0-36.0); Mean Corpuscular Hemoglobin 31.9 pg (26.0-34.0); Monocytes # (Auto) 0.7 K/mcL (0.1-0.9); Monocytes % (Auto) 5.7 % (1.0-12.0); Platelet Count 172 K/mcL (140-440); RBC 4.64 M/mcL (4.50-5.90); Red Cell Distribution Width 13.1 % (11.5-14.5)
[2017-08-12] MEDS: PANTOPRAZOLE 40 MG VIAL IV SCH ×2 (06:50→17:34)
[2017-08-12 06:59] LABS: ALT/SGPT 14 U/l (0-40); Albumin 3.6 gm/dL (3.2-5.2); Albumin/Globulin Ratio 1.3 (1.0-2.3); Alkaline Phosphatase 58 U/L (39-117); Bilirubin,Direct < 0.2 mg/dL (0.0-0.3); Blood Urea Nitrogen 23 mg/dl (8-23); Gamma Glutamyl Transpeptidase 20 U/L (8-61); Uric Acid 3.3 mg/dL (2.5-8.0)
--- NOTE | 2017-08-12 08:36 | XRay Report ---
CLINICAL INFORMATION: FOLLOW -UP OF SMALL BOWEL OBSTRUCTION COMPARISON: 08/11/2017. FINDINGS: NG tube now out. Moderate amount of residual contrast seen within the colon. Stomach, small bowel and colon remain normal caliber. No free air or soft tissue mass. Elevated right diaphragm seen as before IMPRESSION: Negative - no evidence of small bowel obstruction Interpreted and Authenticated by: Fawad Abbasi 08/12/17
[2017-08-12] MEDS: NORTRIPTYLINE 25 MG CAPSULE PO SCH (08:45)
[2017-08-12] MEDS: LOSARTAN 50 MG TABLET PO SCH ×2 (08:45→14:08)
[2017-08-12] MEDS: LEVOFLOXACIN 750 MG/150 ML BAG IV SCH (08:54)
--- NOTE | 2017-08-12 14:36 | General Surgery Progress Note ---
Subjective Patient reports: feels better, pain is less, tolerating liquids well, voiding w/ o difficulty, flatus, no bowel movement, afebrile Narrative: Note initiated : 08/12/17 at 2:31 pm Service Date, if different from initiated Date: [] Patient: Woody Alfred 66 y/o M admitted on 08/08/17 for Abdominal Pain, Nausea /Small Bowel Obstruction. Chief Complaint: [Patient feels better but he states that he feels full. He denies nausea. He has had some flatus but no bowel movement. Abdominal x-ray shows resolution of small bowel distention with contrast in the colon extending to the rectum. There is also gas in the rectum suggesting that he has ongoing adynamic ileus. Stool cultures have not been obtained so far] Objective Temp Pulse Resp BP Pulse Ox 98.5 F 103 H 16 175/94 94 08/12/17 07:10 08/12/17 07:10 08/12/17 07:10 08/12/17 07:10 08/12/17 07:10 - Additional Data Intake & Output - Last 24 hours: Intake & Output 08/10/17 08/11/17 08/12/17 08/13/17 05:59 05:59 05:59 05:59 Intake Total 5355 / 5355 3650 / 3650 2000 / 1999 200 / 200 Output Total 1880 / 1880 1475 / 1475 1500 / 1500 Balance 3475 / 3475 2175 / 2175 500 / 500 200 / 200 Weight 207 lb 206 lb 8 oz 205 lb 8 oz - General physical appearance well developed, well nourished, no distress, severe distress - Eyes PERRL, normal ocular movement - ENT normal pinna, normal nares, normal mucosa, no hearing loss, no congestion - Neck no masses, no bruits, trachea midline, no lymphadectomy, no venous distension - Respiratory normal expansion, normal respiratory effort, clear to percussion, clear to auscultation - Cardiovascular Cardiovascular exam: Present: normal rate and rhythm, RRR, +S1, +S2. Absent: JVD, tachycardia - Abdomen tender, bowel sounds (present), surgical scars (none), wound (Mild incisional ecchymosis), masses (none), distended - Integumentary no rash, no growths, no abnormal pigmentation - Neurologic normal coordination, normal sensation - Musculoskeletal normal gait, normal posture - Psychiatric oriented to time, oriented to person, oriented to place, speech is normal, memory intact - Labs 08/12/17 05:10 08/12/17 05:10 Diabetes panel 08/12/17 Range/Units 05:10 Sodium 143 (133-145) mmol/L Potassium 3.8 (3.3-5.1) mmol/L Chloride 110 H (96-108) mmol/L Carbon Dioxide 21 L (22-30) mmol/L BUN 23 (8-23) mg/dl Creatinine 0.9 (0.7-1.2) mg/dl Glucose 102 (70-105) mg/dL Calcium 8.2 L (8.6-10.4) mg/dl AST 18 (0-37) U/l ALT 14 (0-40) U/l Alkaline Phosphatase 58 (39-117) U/L Total Protein 6.3 (5.9-8.4) gm/dL Albumin 3.6 (3.2-5.2) gm/dL Triglycerides 79 (<150) mg/dl Calcium panel 08/12/17 Range/Units 05:10 Calcium 8.2 L (8.6-10.4) mg/dl Phosphorus 1.5 L (2.7-4.5) mg/dL Albumin 3.6 (3.2-5.2) gm/dL Pituitary panel 08/12/17 Range/Units 05:10 Sodium 143 (133-145) mmol/L Potassium 3.8 (3.3-5.1) mmol/L Chloride 110 H (96-108) mmol/L Carbon Dioxide 21 L (22-30) mmol/L BUN 23 (8-23) mg/dl Creatinine 0.9 (0.7-1.2) mg/dl Glucose 102 (70-105) mg/dL Calcium 8.2 L (8.6-10.4) mg/dl Adrenal panel 08/12/17 Range/Units 05:10 Sodium 143 (133-145) mmol/L Potassium 3.8 (3.3-5.1) mmol/L Chloride 110 H (96-108) mmol/L Carbon Dioxide 21 L (22-30) mmol/L BUN 23 (8-23) mg/dl Creatinine 0.9 (0.7-1.2) mg/dl Glucose 102 (70-105) mg/dL Calcium 8.2 L (8.6-10.4) mg/dl Total Bilirubin 0.5 (0.0-1.0) mg/dL AST 18 (0-37) U/l ALT 14 (0-40) U/l Alkaline Phosphatase 58 (39-117) U/L Total Protein 6.3 (5.9-8.4) gm/dL Albumin 3.6 (3.2-5.2) gm/dL Assessment and Plan (1) Small bowel obstruction Status: Acute Assessment and plan: Clinically much improved Milk of magnesia 3 doses Delay advance in diet until patient has less distention Current Visit: Yes (2) Essential hypertension Status: Acute Assessment and plan: Blood pressures have been elevated. He is started on his oral medications We will continue IV metoprolol for the next 24 hours Current Visit: Yes (3) Dehydration, moderate Status: Acute Assessment and plan: Resolved Current Visit: Yes (4) Left renal mass Status: Acute Assessment and plan: To be referred to urology when he returns to the office Current Visit: Yes - Time Spent With Patient Total time spent is greater than 50% in coordination of care (as documented) at patient's floor/unit and/or counseling patient:
[2017-08-12] MEDS: MAGNESIUM HYDROXIDE 30 ML ORAL.SUSP PO SCH ×3 (14:46→23:22)
[2017-08-12] MEDS: GABAPENTIN 300 MG CAPSULE PO SCH (19:54)
[2017-08-12] MEDS: TOPIRAMATE 100 MG TABLET PO SCH (19:54)
[2017-08-13] MEDS: HYDROmorphone 2 MG/ML VIAL IV PRN (00:53)
[2017-08-13] MEDS: ACETAMINOPHEN 1,000 MG/100 ML BOTTLE IV PRN (00:55)
[2017-08-13] MEDS: METOPROLOL TARTRATE 5 MG/5 ML VIAL IV PRN (03:58)
[2017-08-13 05:34] LABS: Basophils # (Auto) 0 K/mcL (0.0-0.3); Basophils % (Auto) 0.2 % (0.0-2.0); Eosinophils # (Auto) 0.3 K/mcL (0.0-0.7); Eosinophils % (Auto) 3.2 % (0.0-7.0); Granulocytes % (Auto) 75.2 % (38.0-78.0); Lymphocytes # (Auto) 1.5 K/mcL (1.5-4.8); Lymphocytes % (Auto) 14.6 % (15.5-49.0); Mean Cell Volume 94.9 fL (80.0-100.0); Mean Corpuscular HGB Conc 33.6 g/dL (31.0-36.0); Mean Corpuscular Hemoglobin 31.8 pg (26.0-34.0); Monocytes # (Auto) 0.7 K/mcL (0.1-0.9); Monocytes % (Auto) 6.8 % (1.0-12.0); Platelet Count 193 K/mcL (140-440); RBC 4.65 M/mcL (4.50-5.90); Red Cell Distribution Width 13.4 % (11.5-14.5)
[2017-08-13] MEDS: metroNIDAZOLE 500 MG/100 ML BAG IV SCH ×4 (05:54→23:30)
[2017-08-13] MEDS: METOCLOPRAMIDE 10 MG/2 ML VIAL IV SCH ×4 (05:54→23:30)
[2017-08-13] MEDS: 0.9 % SODIUM CHLORIDE 10 ML SYRINGE IV SCH ×4 (05:54→20:30)
[2017-08-13 05:58] LABS: ALT/SGPT 16 U/l (0-40); Albumin 3.8 gm/dL (3.2-5.2); Albumin/Globulin Ratio 1.5 (1.0-2.3); Alkaline Phosphatase 57 U/L (39-117); Bilirubin,Direct 0.2 mg/dL (0.0-0.3); Blood Urea Nitrogen 25 mg/dl (8-23); Gamma Glutamyl Transpeptidase 27 U/L (8-61); Uric Acid 3.1 mg/dL (2.5-8.0)
[2017-08-13] MEDS: PANTOPRAZOLE 40 MG VIAL IV SCH ×2 (08:24→16:43)
--- NOTE | 2017-08-13 09:04 | XRay Report ---
CLINICAL INFORMATION: Follow small bowel obstruction COMPARISON: 08/11/2017 and 08/12/2017 supine abdomen film FINDINGS: The stool gas pattern remains normal. There is persistent residual enteric contrast in the colon. Stomach and small bowel are normal caliber. No free air, pathologic calcification, soft tissue mass or organomegaly IMPRESSION: No evidence recurrent small bowel obstruction. Prolonged colonic retention of enteric contrast suggest colonic hypomotility - ileus Interpreted and Authenticated by: Fawad Abbasi 08/13/17
[2017-08-13] MEDS: NORTRIPTYLINE 25 MG CAPSULE PO SCH (09:08)
[2017-08-13] MEDS: LOSARTAN 50 MG TABLET PO SCH (09:09)
[2017-08-13] MEDS: LEVOFLOXACIN 750 MG/150 ML BAG IV SCH (09:11)
[2017-08-13] MEDS ORDERED: HYDROCORTISONE 100 MG/60 ML BOTTLE PR ONE (09:35)
[2017-08-13] MEDS ORDERED: DEXTROSE 5%-1/2NS W/40MEQ KCL 1,000 ML IV SCH (09:45)
[2017-08-13] MEDS: SODIUM CHLORIDE NASAL 1 SPRAY BOTTLE NAS SCH ×4 (10:47→23:29)
[2017-08-13] MEDS: NEUTRA PHOS 1 PACKET PO SCH ×2 (10:49→20:30)
[2017-08-13] MEDS: 0.9 % SODIUM CHLORIDE 1,000 ML IV SCH (11:46)
--- NOTE | 2017-08-13 13:34 | Internal Med Progress Note ---
Medical - PN: Subj Patient information: Note initiated : 08/13/17 at 1:29 pm Service Date, if different from initiated Date: [] Patient: Woody Alfred 66 y/o M admitted on 08/08/17 for Abdominal Pain, Nausea /Small Bowel Obstruction. Chief Complaint: [] Interval history: Patient admitted to the hospital for SBO, by Dr Johnson, s/p larotomy pt been seen by medicine to ensure that patient remains hemodynamically stable, and to address any acute medical needs. patient had ileus uptill this AM, he had 2 BM this AM liquid. his abdominal distention is better. The patient complaints of shortness of breath, predominantly nasal stuffiness which makes it difficult for him to breath via his nose. He has not other acute concerns. Pertinent ROS: Denies headache, dizziness Denies chest pain, palpitations Denies cough or shortness of breath Denies abdominal pain, nausea or vomiting. diarrhea present. - Constitutional Vitals: Vital Signs Temp Pulse Resp BP Pulse Ox 98.8 F 107 H 12 157/95 95 08/13/17 12:00 08/13/17 12:00 08/13/17 12:00 08/13/17 12:00 08/13/17 12:00 Period Temp Pulse Resp BP Sys/Lino Pulse Ox Last 24 Hr 97.7 F-98.9 F 75-107 12-20 145-176/89-110 92-95 Intake and Output 08/12/17 08/13/17 08/13/17 21:59 05:59 13:59 Intake Total 1200 / 1200 550 / 550 1600 / 1600 Output Total 150 / 150 Balance 1200 / 1200 550 / 550 1450 / 1450 Weight 206 lb Intake & Output: Intake & Output 08/12/17 08/13/17 08/13/17 21:59 05:59 13:59 Intake Total 1200 / 1200 550 / 550 1600 / 1600 Output Total 150 / 150 Balance 1200 / 1200 550 / 550 1450 / 1450 Weight 206 lb Intake: IV 1200 / 1200 200 / 200 1250 / 1250 Sodium Chloride 0.9% 1,000 ml @ 1000 / 1000 1000 / 1000 100 mls/hr IV .Q10H GILL[facility] Rx#: [id number] OFIRMEV 1,000 mg In 100 ml @ 100 / 100 200 mls/hr IV Q6HP PRN Rx#: [id number] Oral 350 / 350 350 / 350 Output: Void Amount 150 / 150 Other: Meal Breakfast Percent of Meal Consumed 100% Stool Size Small Moderate Stool Color Brown Brown Stool Consistency Liquid Liquid # Voids 1 1 # Bowel Movements 1 # of times incontinent of 1 Bowels Exam: Constitutional; Afebrile, cooperative, alert, not in distress. Eyes- No icterus, , No periorbital swelling Ears- Ext ear normal, hearing normal to conversation. Neck- Midline trachea, supple Respiratory system: Air Entry equal on both sides, No crackles or wheezing, no rhonchi. CVS- Rate rhythm regular, S1,S2 heard, no gallop, no rub. Abdomen- Soft nontender abdomen, no organomegaly, gen tenderness, no guarding or rigidity, mild line sutures, slight oozing of blood via suture line, no pus noted. patient has good bowel sounds. [employer]- AOOx3, moving all extremities, no gross focal deficit noted. Medical - PN: Obj Da - Labs CBC & Chem 7: 08/13/17 04:10 08/13/17 04:10 Labs: Abnormal Lab Results 08/13/17 08/13/17 08/12/17 04:10 04:10 05:10 WBC Gran % Lymph % (Auto) 14.6 L Gran # Lymph # (Auto) Sodium 146 H Chloride 110 H 110 H Carbon Dioxide 21 L BUN 25 H Glucose Calcium 8.3 L 8.2 L Phosphorus 1.6 L 1.5 L NT-Pro-B Natriuret Pep 08/12/17 08/11/17 08/11/17 05:10 09:45 04:50 WBC 11.7 H Gran % 83.0 H Lymph % (Auto) 10.2 L Gran # 9.7 H Lymph # (Auto) 1.2 L Sodium Chloride 109 H Carbon Dioxide 20 L BUN Glucose 109 H Calcium 8.0 L Phosphorus 1.7 L NT-Pro-B Natriuret Pep 144.2 H 08/11/17 04:50 WBC 13.7 H Gran % 83.9 H Lymph % (Auto) 8.5 L Gran # 11.5 H Lymph # (Auto) 1.2 L Sodium Chloride Carbon Dioxide BUN Glucose Calcium Phosphorus NT-Pro-B Natriuret Pep Meds: Medications Gabapentin (Neurontin) 300 mg PO HS [facility] Last Admin: 08/12/17 19:54 Dose: 300 mg Hydrocortisone (Hc Crm 1%) 1 dose TOPICAL DAILY [facility] Hydromorphone HCl (Dilaudid) 1 mg IV Q2HP PRN PRN Reason: PAIN LEVEL > 6 Last Admin: 08/13/17 00:53 Dose: 1 mg Levofloxacin (Levaquin) 750 mg in 150 mls @ 100 mls/hr IV Q24H [facility] Last Infusion: 08/13/17 11:00 Dose: Infused Acetaminophen (Ofirmev) 1,000 mg in 100 mls @ 200 mls/hr IV Q6HP PRN PRN Reason: Pain Last Infusion: 08/13/17 01:25 Dose: Infused Metronidazole (Flagyl) 500 mg in 100 mls @ 100 mls/hr IV Q6H [facility] Last Admin: 08/13/17 12:28 Dose: 100 mls/hr Losartan Potassium (Cozaar) 100 mg PO DAILY [facility] Last Admin: 08/13/17 09:09 Dose: 100 mg Metoclopramide HCl (Reglan) 10 mg IV Q6 [facility] Last Admin: 08/13/17 12:31 Dose: 10 mg Metoprolol Tartrate (Lopressor) 5 mg IV Q4HP PRN PRN Reason: hypertention Last Admin: 08/13/17 03:58 Dose: 5 mg Nortriptyline HCl (Pamelor) 25 mg PO DAILY [facility] Last Admin: 08/13/17 09:08 Dose: 25 mg Ondansetron HCl (Zofran) 4 mg IV Q4HP PRN PRN Reason: Nausea And Vomiting Pantoprazole Sodium (Protonix) 40 mg IV BIDAC [facility] Last Admin: 08/13/17 08:24 Dose: 40 mg Potassium/Phosphorus/Sodium (Neutra Phos) 1 packet PO BID [facility] Last Admin: 08/13/17 10:49 Dose: 1 packet Promethazine HCl (Phenergan) 12.5 mg IV Q4HP PRN PRN Reason: Nausea And Vomiting Sodium Chloride (Saline Flush) 10 ml IV Q8 [facility] Last Admin: 08/13/17 12:29 Dose: 10 ml Sodium Chloride (Kipp Nasal) 2 spray MIRI Q4H [facility] Last Admin: 08/13/17 10:47 Dose: 2 puff Topiramate (Topamax) 100 mg PO HS [facility] Last Admin: 08/12/17 19:54 Dose: 100 mg Medical - PN: A/P - Time Spent With Patient Total time spent is greater than 50% in coordination of care (as documented) at patient's floor/unit and/or counseling patient: - Narrative A/P Narrative: A/P Small bowel obstruction: s/p exp lap, pt tolerated procedure well, Had 2 BM this AM, and one in the afternoon, liquid, tolerating diet well, follow up per surgery Hypophosphatemia/ hypokalemia/ hypernatremia: replace phos, mg normal, start on d5/half ns and KCL for hydration and replacement of K Nasal stuffiness/ Shortness of breath: Chest exam is clear, nasal saline for nasal congestion for now. Hypertension: start on po clonidine prn for HTN, some reactive component present, continue with losartan Dehydration: IV fluids, much improved Renal Mass newly diagnosed: will need outpatient referral to urology for further evaluation. DVT SCD Full code Soft diet.
[2017-08-13] MEDS: HYDROCORTISONE CRM 1% TUBE 30GM TOPICAL SCH (13:35)
[2017-08-13] MEDS: DEXTROSE 5%-1/2NS W/40MEQ KCL 1,000 ML IV SCH (14:30)
[2017-08-13] MEDS: cloNIDine HCL 0.1 MG TABLET PO PRN ×2 (16:34→23:36)
[2017-08-13] MEDS ORDERED: ACETAMINOPHEN 325 MG TABLET PO PRN (18:06)
[2017-08-13] MEDS ORDERED: oxyCODONE HCL 5 MG TABLET PO ONE ×2 (19:17→23:44)
[2017-08-13] MEDS: oxyCODONE HCL 5 MG TABLET PO PRN ×2 (19:21→23:45)
[2017-08-13] MEDS: TOPIRAMATE 100 MG TABLET PO SCH (20:30)
[2017-08-13] MEDS: GABAPENTIN 300 MG CAPSULE PO SCH (20:30)
[2017-08-14] MEDS: SODIUM CHLORIDE NASAL 1 SPRAY BOTTLE NAS SCH ×2 (03:35→08:51)
[2017-08-14] MEDS ORDERED: oxyCODONE HCL 5 MG TABLET PO ONE (03:46)
[2017-08-14] MEDS: metroNIDAZOLE 500 MG/100 ML BAG IV SCH (06:04)
[2017-08-14] MEDS: DEXTROSE 5%-1/2NS W/40MEQ KCL 1,000 ML IV SCH (06:05)
[2017-08-14] MEDS: 0.9 % SODIUM CHLORIDE 10 ML SYRINGE IV SCH (06:05)
[2017-08-14] MEDS: METOCLOPRAMIDE 10 MG/2 ML VIAL IV SCH (06:05)
--- NOTE | 2017-08-14 07:37 | XRay Report ---
CLINICAL INFORMATION: Small bowel obstruction - follow up COMPARISON: 08/14/2015 FINDINGS: Most of the barium has been evacuated from the colon with minimal residual. Stomach, small/large bowel remain normal caliber. Moderately elevated right diaphragm noted. No free air, soft tissue mass or pathologic calcification IMPRESSION: Normal Interpreted and Authenticated by: Fawad Abbasi 08/14/17
[2017-08-14] MEDS: NORTRIPTYLINE 25 MG CAPSULE PO SCH (08:48)
[2017-08-14] MEDS: LOSARTAN 50 MG TABLET PO SCH (08:48)
[2017-08-14] MEDS: LEVOFLOXACIN 750 MG/150 ML BAG IV SCH (08:48)
[2017-08-14] MEDS: NEUTRA PHOS 1 PACKET PO SCH (08:48)
[2017-08-14] MEDS: PANTOPRAZOLE 40 MG VIAL IV SCH (08:49)
[2017-08-14] MEDS: HYDROCORTISONE CRM 1% TUBE 30GM TOPICAL SCH (08:51)
[2017-08-14 09:16] LABS: Basophils # (Auto) 0 K/mcL (0.0-0.3); Basophils % (Auto) 0.3 % (0.0-2.0); Eosinophils # (Auto) 0.4 K/mcL (0.0-0.7); Granulocytes % (Auto) 74.1 % (38.0-78.0); Lymphocytes # (Auto) 1.3 K/mcL (1.5-4.8); Lymphocytes % (Auto) 14.5 % (15.5-49.0); Mean Cell Volume 94.9 fL (80.0-100.0); Mean Corpuscular HGB Conc 33.5 g/dL (31.0-36.0); Mean Corpuscular Hemoglobin 31.8 pg (26.0-34.0); Monocytes # (Auto) 0.6 K/mcL (0.1-0.9); Monocytes % (Auto) 7.1 % (1.0-12.0); Platelet Count 186 K/mcL (140-440); RBC 4.71 M/mcL (4.50-5.90); Red Cell Distribution Width 13.4 % (11.5-14.5)
[2017-08-14 09:52] LABS: ALT/SGPT 28 U/l (0-40); Albumin 3.6 gm/dL (3.2-5.2); Albumin/Globulin Ratio 1.4 (1.0-2.3); Alkaline Phosphatase 54 U/L (39-117); Bilirubin,Direct 0.2 mg/dL (0.0-0.3); Blood Urea Nitrogen 19 mg/dl (8-23); Gamma Glutamyl Transpeptidase 38 U/L (8-61); Uric Acid 2.6 mg/dL (2.5-8.0)
--- NOTE | 2017-08-14 10:20 | Discharge Summary ---
Providers - Providers Patient information: Note initiated : 08/14/17 at 10:17 am Service Date, if different from initiated Date: [] Patient: Woody Alfred 66 y/o M admitted on 08/08/17 for Abdominal Pain, Nausea /Small Bowel Obstruction. Chief Complaint: [] Date of admission: 08/08/17 Discharge date: 08/14/17 Attending physician: Jayce Johnson Hospitalization Hospital course: Admitted after eating poor food - during CT scan with IV contrast for radiologically identified SBO pain became severe and started to look septic after not responding to non-surgical treatment. Taken urgently to OR for ex lap which showed only an ileus. Postop recovery was slow - at time of DC has been having flatus & liquid BM's x 2 days. Taking soft diet. Has had some HTN needing Catapres - but has not resumed regular HTN meds. Also found to have L Renal mass that needs further evaluation and is suspicious for neoplasm. Discharge diagnosis: Partial SBO Secondary discharge diagnosis: Ileus Hypertension Left renal mass Various electrolyte abnormalities Reason for admission: abdominal pain, bowel obstruction Procedures: Exploratory Laparotomy - 08/09/2018 - Dr. Johnson Pertinent studies/significant findings: CT scan 08/09/2017 showing small bowel transition point as well as lobular left inferior renal mass Complications: none Exam Temp Pulse Resp BP Pulse Ox 98.9 F 91 H 16 158/78 95 08/14/17 03:35 08/14/17 03:35 08/14/17 03:35 08/14/17 07:30 08/14/17 03:35 - General physical appearance well developed, well nourished, no distress - Eyes PERRL - ENT normal mucosa, no congestion - Neck no masses, no bruits, trachea midline, no lymphadectomy, no venous distension - Cardiovascular Cardiovascular exam IM: Present: normal rate and rhythm - Respiratory normal expansion, normal respiratory effort, clear to percussion, clear to auscultation - Abdomen Abdomen: Present: soft, bowel sounds, wound (healing well with clips in place - moderate amount of ecchymotic changes but no hematoma, no cellulitis or discharge) - Musculoskeletal Present: other (- Jesika's, nontender calves) Discharge Plan - Patient/Caregiver Discharge Instructions Activity: increase activity as tolerated Diet: Dysphagia Advanced (slowly advance diet over next week - adding milk & meats last) Additional Instructions: No lifting > 10 pounds Call or come to ER if Temp > 101, persistent vomiting, increasing abdominal pain , problems with incision Prescriptions: oxyCODONE HCL/ACETAMINOPHEN [Endocet 10-325 mg Tablet] 1 each PO Q4HP PRN #60 tab PRN Reason: Pain Level > 6 - Follow up Plan Follow up with: Haley Hennessy MD [Physician] - Disposition: Home, Self-Care Prognosis: Good Rehab Potential: Good Overall status at discharge: patient is progressing back to baseline Pending Studies Resuscitation Status Full Code Diet Dysphagia Mechanical Altered Diet L2 Start Jaimee Aug 13 1113 Clonidine HCl (Catapres) 0.1 mg PO Q4HP PRN PRN Reason: Hypertension Last Admin: 08/13/17 23:36 Dose: 0.1 mg Admin: 08/13/17 16:34 Dose: 0.1 mg Gabapentin (Neurontin) 300 mg PO HS [facility] Last Admin: 08/13/17 20:30 Dose: 300 mg Admin: 08/12/17 19:54 Dose: 300 mg Hydrocortisone (Hc Crm 1%) 1 dose TOPICAL DAILY [facility] Last Admin: 08/14/17 08:51 Dose: 1 applic Admin: 08/13/17 13:35 Dose: 1 applic Hydromorphone HCl (Dilaudid) 1 mg IV Q2HP PRN PRN Reason: PAIN LEVEL > 6 Last Admin: 08/13/17 00:53 Dose: 1 mg Admin: 08/12/17 19:54 Dose: 1 mg Admin: 08/12/17 17:33 Dose: 1 mg Admin: 08/12/17 15:01 Dose: 1 mg Admin: 08/12/17 11:32 Dose: 1 mg Admin: 08/12/17 06:50 Dose: 1 mg Admin: 08/12/17 04:24 Dose: 1 mg Admin: 08/12/17 01:46 Dose: 1 mg Admin: 08/11/17 21:20 Dose: 1 mg Admin: 08/11/17 18:18 Dose: 1 mg Admin: 08/11/17 15:26 Dose: 1 mg Admin: 08/11/17 13:13 Dose: 1 mg Admin: 08/11/17 10:02 Dose: 1 mg Admin: 08/11/17 06:01 Dose: 1 mg Admin: 08/11/17 03:30 Dose: 1 mg Admin: 08/11/17 00:38 Dose: 1 mg Admin: 08/10/17 21:56 Dose: 1 mg Admin: 08/10/17 19:42 Dose: 1 mg Admin: 08/10/17 15:17 Dose: 1 mg Admin: 08/10/17 12:16 Dose: 1 mg Admin: 08/10/17 09:34 Dose: 1 mg Admin: 08/10/17 06:42 Dose: 1 mg Admin: 08/10/17 02:29 Dose: 1 mg Admin: 08/09/17 23:27 Dose: 1 mg Levofloxacin (Levaquin) 750 mg in 150 mls @ 100 mls/hr IV Q24H [facility] Last Admin: 08/14/17 08:48 Dose: 100 mls/hr Infusion: 08/13/17 11:00 Dose: 0 mls/hr Admin: 08/13/17 09:11 Dose: 100 mls/hr Infusion: 08/12/17 10:24 Dose: 0 mls/hr Admin: 08/12/17 08:54 Dose: 100 mls/hr Infusion: 08/11/17 11:31 Dose: 0 mls/hr Admin: 08/11/17 10:01 Dose: 100 mls/hr Infusion: 08/10/17 11:19 Dose: 0 mls/hr Admin: 08/10/17 09:43 Dose: 100 mls/hr Metronidazole (Flagyl) 500 mg in 100 mls @ 100 mls/hr IV Q6H [facility] Last Admin: 08/14/17 06:04 Dose: 100 mls/hr Infusion: 08/14/17 00:30 Dose: 0 mls/hr Admin: 08/13/17 23:30 Dose: 100 mls/hr Infusion: 08/13/17 18:49 Dose: 100 mls/hr Admin: 08/13/17 17:49 Dose: 100 mls/hr Infusion: 08/13/17 13:30 Dose: 0 mls/hr Admin: 08/13/17 12:28 Dose: 100 mls/hr Infusion: 08/13/17 06:55 Dose: 0 mls/hr Admin: 08/13/17 05:54 Dose: 100 mls/hr Infusion: 08/13/17 00:22 Dose: 100 mls/hr Admin: 08/12/17 23:22 Dose: 100 mls/hr Infusion: 08/12/17 18:34 Dose: 100 mls/hr Admin: 08/12/17 17:34 Dose: 100 mls/hr Infusion: 08/12/17 14:10 Dose: 0 mls/hr Admin: 08/12/17 12:45 Dose: 100 mls/hr Infusion: 08/12/17 06:31 Dose: 0 mls/hr Admin: 08/12/17 05:31 Dose: 100 mls/hr Infusion: 08/12/17 00:40 Dose: 0 mls/hr Admin: 08/11/17 23:34 Dose: 100 mls/hr Infusion: 08/11/17 19:20 Dose: 0 mls/hr Admin: 08/11/17 18:15 Dose: 100 mls/hr Infusion: 08/11/17 13:17 Dose: 0 mls/hr Admin: 08/11/17 12:13 Dose: 100 mls/hr Infusion: 08/11/17 07:02 Dose: 0 mls/hr Admin: 08/11/17 06:02 Dose: 100 mls/hr Infusion: 08/11/17 01:32 Dose: 100 mls/hr Admin: 08/11/17 00:32 Dose: 100 mls/hr Infusion: 08/10/17 21:59 Dose: 100 mls/hr Admin: 08/10/17 20:59 Dose: 100 mls/hr Infusion: 08/10/17 17:47 Dose: 0 mls/hr Admin: 08/10/17 16:47 Dose: 100 mls/hr Potassium Chloride/Dextrose/Sod Cl (Dextrose 5%-1/2ns W/40meq Kcl) 1,000 mls @ 75 mls/hr IV .[id number] [facility] Stop: 08/14/17 16:39 Last Admin: 08/14/17 06:05 Dose: 75 mls/hr Infusion: 08/14/17 03:50 Dose: 0 mls/hr Admin: 08/13/17 14:30 Dose: 75 mls/hr Losartan Potassium (Cozaar) 100 mg PO DAILY [facility] Last Admin: 08/14/17 08:48 Dose: 100 mg Admin: 08/13/17 09:09 Dose: 100 mg Admin: 08/12/17 14:08 Dose: 100 mg Metoclopramide HCl (Reglan) 10 mg IV Q6 [facility] Last Admin: 08/14/17 06:05 Dose: 10 mg Admin: 08/13/17 23:30 Dose: 10 mg Admin: 08/13/17 17:48 Dose: 10 mg Admin: 08/13/17 12:31 Dose: 10 mg Admin: 08/13/17 05:54 Dose: 10 mg Admin: 08/12/17 23:27 Dose: 10 mg Admin: 08/12/17 17:34 Dose: 10 mg Admin: 08/12/17 12:46 Dose: 10 mg Admin: 08/12/17 05:32 Dose: 10 mg Admin: 08/11/17 23:34 Dose: 10 mg Admin: 08/11/17 18:19 Dose: 10 mg Admin: 08/11/17 12:14 Dose: 10 mg Admin: 08/11/17 06:02 Dose: 10 mg Admin: 08/11/17 00:32 Dose: 10 mg Admin: 08/10/17 18:54 Dose: 10 mg Admin: 08/10/17 11:25 Dose: 10 mg Admin: 08/10/17 06:26 Dose: 10 mg Admin: 08/09/17 23:15 Dose: 10 mg Admin: 08/09/17 17:55 Dose: Not Given Nortriptyline HCl (Pamelor) 25 mg PO DAILY [facility] Last Admin: 08/14/17 08:48 Dose: 25 mg Admin: 08/13/17 09:08 Dose: 25 mg Admin: 08/12/17 08:45 Dose: 25 mg Oxycodone HCl (Roxicodone) 5 mg PO Q4HP PRN PRN Reason: PAIN LEVEL 3-6 Last Admin: 08/13/17 23:45 Dose: 5 mg Admin: 08/13/17 19:21 Dose: 5 mg Pantoprazole Sodium (Protonix) 40 mg IV BIDAC [facility] Last Admin: 08/14/17 08:49 Dose: 40 mg Admin: 08/13/17 16:43 Dose: 40 mg Admin: 08/13/17 08:24 Dose: 40 mg Admin: 08/12/17 17:34 Dose: 40 mg Admin: 08/12/17 06:50 Dose: 40 mg Admin: 08/11/17 17:11 Dose: 40 mg Admin: 08/11/17 07:45 Dose: 40 mg Admin: 08/10/17 16:47 Dose: 40 mg Admin: 08/10/17 06:42 Dose: 40 mg Admin: 08/09/17 20:39 Dose: 40 mg Potassium/Phosphorus/Sodium (Neutra Phos) 1 packet PO BID [facility] Last Admin: 08/14/17 08:48 Dose: 1 packet Admin: 08/13/17 20:30 Dose: 1 packet Admin: 08/13/17 10:49 Dose: 1 packet Sodium Chloride (Saline Flush) 10 ml IV Q8 [facility] Last Admin: 08/14/17 06:05 Dose: Not Given Admin: 08/13/17 20:30 Dose: Not Given Admin: 08/13/17 16:43 Dose: 10 ml Admin: 08/13/17 12:29 Dose: 10 ml Admin: 08/13/17 05:54 Dose: 10 ml Admin: 08/12/17 22:15 Dose: Not Given Admin: 08/12/17 14:08 Dose: Not Given Admin: 08/12/17 05:32 Dose: 10 ml Admin: 08/11/17 22:15 Dose: 10 ml Admin: 08/11/17 13:17 Dose: Not Given Admin: 08/11/17 05:24 Dose: Not Given Admin: 08/10/17 21:37 Dose: Not Given Admin: 08/10/17 13:32 Dose: Not Given Admin: 08/10/17 06:26 Dose: Not Given Admin: 08/09/17 20:39 Dose: Not Given Sodium Chloride ([place] Nasal) 2 spray MIRI Q4H [facility] Last Admin: 08/14/17 08:51 Dose: 2 spray Admin: 08/14/17 03:35 Dose: Not Given Admin: 08/13/17 23:29 Dose: Not Given Admin: 08/13/17 19:21 Dose: 2 spray Admin: 08/13/17 16:37 Dose: 2 spray Admin: 08/13/17 10:47 Dose: 2 puff Topiramate (Topamax) 100 mg PO HS [facility] Last Admin: 08/13/17 20:30 Dose: 100 mg Admin: 08/12/17 19:54 Dose: 100 mg Shift Summary 08/14/17 04:46 Shift Summary by Mirella Flynn Addendum entered by Mirella Flynn R.N. 08/14/17 05:05: Received clonidine x1 tonight for elevated BP, there are parameters on the MAR: SBP >160 and DBP >95. Original Note: Alert and oriented, flat affect. Midline abdominal incision with felix and tagaderm, small amount of drainage pooled at bottom, drsg changed yesterday. Abdomen tender along incision line, round, somewhat distended. 2 loose BM's tonight, sent sample for stool, norovirus sample was collected yesterday. 20G IV to Left wrist running D5 0.45% with 40meq at 75 mls/hr. He also has a SL to the medial upper LFA. Up with SBA and FWW. Voiding QS tea colored urine in urinal. No n/v, tolerating diet and liquids. Medicated with 5mg Roxicodone every 4 hours for abdominal and back pain, was able to get some sleep with it. Phos was low yesterday, on NeutraPhos as of yesterday. No labs ordered this AM. Bleeding hemorrhoids, preparation H ordered and applied. Initialized on 08/14/17 04:46 - END OF NOTE
== END 2017-08-14 11:48 | disposition home or self-care (01) | DRG 357 ==
LOC: ED 17:26 → SUATTDRO 21:49 → MEDSUR 21:49
PROVIDERS: ADMIT Family Medicine Adult Medicine; ATTEND Surgery